=== PATIENT | female | born 2000 | race Caucasian/White ===

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

== ENCOUNTER → 2022-10-04 | Outpatient (REF) | payer BC ==
[2022-10-04 20:15] LABS: GC DNA AMPLIFICATION NEGATIVE (NEGATIVE)
== END ==
LOC: M LAB REF 17:00
PROVIDERS: ATTEND Pediatrics
DX: Z00.00 Encounter for general adult medical examination without abnormal findings (principal)